=== PATIENT | male | born 1945 | race Caucasian/White ===

== ENCOUNTER 2019-08-29 16:45 | Emergency (ER) | payer MEDICARE ==
[2019-08-29 17:45] LABS: #Basophils 0.1 thou/uL (0.0-0.2); #Eosinphils 0.1 thou/uL (0.0-0.7); #Lymphocytes 1.1 thou/uL (1.20-3.40); #Monocytes 1.1 thou/uL (0.11-0.59); #Neutrophils 12.8 thou/uL (1.40-6.50); %Basophils 0.5 % (0.0-1.0); %Eosinophils 0.7 % (0.0-10.0); %Monocytes 7.5 % (0.0-10.0); %Neutrophils 84.3 % (42.0-75.0); Hemoglobin 14.4 g/dL (14.0-18.0); Mean Corpuscular HGB CONC 31.6 g/dL (32.0-36.0); Mean Corpuscular Hemoglobin 31.8 pg (27.0-31.0); Mean Platelet Volume 7.9 fL (7.4-10.4); Platelet Count 219 thou/uL (130-400); RBC Distribution Width 12.5 % (11.5-14.5); Red Blood Cell (RBC) Count 4.51 mill/uL (4.70-6.10); White Blood Cell (WBC) Count 15.2 thou/uL (4.8-10.8)
[2019-08-29 18:11] LABS: ALT (SGPT) 16 U/L (8-55); AST (SGOT) 21 U/L (5-34); Albumin 3.6 g/dL (3.4-4.8); Alkaline Phosphatase 86 U/L (40-110); Anion Gap 17 mmol/L (10-20); BUN (Urea Nitrogen) 11 mg/dL (8.4-25.7); Bilirubin, Total 0.5 mg/dL (0.2-1.2); Calc. Creatinine Clearance 0 mL/min (70-130); Calcium 8.2 mg/dL (7.8-10.44); Carbon Dioxide 22 mmol/L (23-31); Chloride 104 mmol/L (98-107); Estimated GFR-MDRD 81; Globulin 2.9 g/dL (2.4-3.5); Glucose 105 mg/dL (83-110); Lipase 10 U/L (8-78); Potassium 3.6 mmol/L (3.5-5.1); Protein, Total 6.5 g/dL (5.8-8.1); Sodium 139 mmol/L (136-145)
[2019-08-29] MEDS ORDERED: Sodium Chloride 0.9% 1,000 ML ONE ×2 (18:26→20:26)
[2019-08-29 18:28] LABS: Bilirubin Small (Negative); Blood, Urine Negative (Negative); Clarity Clear (Clear); Glucose, Urine (Dipstick) Negative (Negative); Leukocyte Negative (Negative); Nitrite Negative (Negative); Protein, Urine (Dipstick) 30 mg/dL (Neg-Trace); Urobilinogen 0.2 mg/dL (Less than 2)
[2019-08-29 18:29] LABS: RBC/HPF 0-3 HPF (0-3); Squamous Epithelial 0-3 HPF (0-3); WBC/HPF None Seen HPF (0-3)
[2019-08-29 18:30] LABS: Bacteria/HPF None Seen HPF (None Seen)
--- NOTE | 2019-08-29 19:26 | CT ---
CT ABDOMEN NONCONTRAST CT PELVIS NONCONTRAST: (Urolithiasis protocol) DATE: 08/29/2019 HISTORY: 74-year-old male with generalized abdominal pain and diarrhea COMPARISON: None TECHNIQUE: IV injection of iodinated contrast media: None Oral contrast media: None FINDINGS: Other than for urolithiasis, the lack of IV and oral contrast limits the evaluation. Small amount of fluid around the right lobe of liver. Images are degraded by patient motion. Large number of diverticula throughout the sigmoid colon. Significant thickening of long segment of s igmoid colon surrounded by fat stranding representing edema. Mural thickening of rectum circumferentially. No small bowel dilation. Diffuse mural thickening of urinary bladder, nonspecific. Enlarged prostate gland. Small amount of free fluid along the right paracolic gutter. No calculus identified in the kidneys, ureters, or bladder. No hydronephrosis. Heavy atherosclerotic callus patient of abdominal aorta and iliac arteries without aneurysm. Within the limitations of a noncontrast scan, no gross abnormality identified involving liver, spleen , or pancreas. No pneumoperitoneum. Fold thickening of transverse colon. IMPRESSION: 1. Sigmoid colonic diverticulosis and probable diverticulitis. 2. Apparent colitis involving transverse colon and rectum. 3. Small amount of free fluid at right paracolic gutter and around the liver. 4. No urolithiasis or obstructive uropathy. 5. Diffuse mural thickening of the urinary bladder. This is nonspecific, but one possibility is chron ic bladder outlet obstruction due to enlarged prostate
[2019-08-29] MEDS ORDERED: Sodium Chloride 0.9% 100 ML ONE (19:35)
[2019-08-29] MEDS ORDERED: Cefepime 2 GM VIAL ONE (19:35)
[2019-08-29] MEDS ORDERED: Morphine 2 MG/ML SYRINGE ONE (19:59)
[2019-08-29] MEDS ORDERED: Ondansetron PF 4 MG/2 ML Vial ONE (19:59)
[2019-08-29] MEDS ORDERED: metroNIDAZOLE 500 MG/100 ML BAG ONE (20:08)
== END 2019-08-29 21:35 | disposition short-term general hospital (02) ==
LOC: NAV ERS 16:45
DX: K52.9 Noninfective gastroenteritis and colitis, unspecified (principal); K57.32 Diverticulitis of large intestine without perforation or abscess without bleeding; D72.829 Elevated white blood cell count, unspecified; R11.0 Nausea; E78.5 Hyperlipidemia, unspecified; E78.00 Pure hypercholesterolemia, unspecified; I10 Essential (primary) hypertension; F17.210 Nicotine dependence, cigarettes, uncomplicated; Z79.899 Other long term (current) drug therapy
CPT/HCPCS: 74176; 80053; 81003; 81015; 82274; 83605; 83690; 85025; 87045; 87046; 87324; 87427; 87449; 94760; 96361; 96365; 96367; 96375; J0692; J2270; J2405; J3490; J7050

== ENCOUNTER 2019-09-06 16:32 | Emergency (ER) | payer MEDICARE ==
[2019-09-06] MEDS ORDERED: Sodium Chloride 0.9% 1,000 ML ONE (16:57)
[2019-09-06 17:05] LABS: #Eosinphils 0.2 thou/uL (0.0-0.7); #Lymphocytes 1.7 thou/uL (1.20-3.40); #Monocytes 0.8 thou/uL (0.11-0.59); #Neutrophils 6.3 thou/uL (1.40-6.50); %Basophils 0.5 % (0.0-1.0); %Eosinophils 1.9 % (0.0-10.0); %Lymphocytes 18.9 % (21.0-51.0); %Monocytes 8.7 % (0.0-10.0); %Neutrophils 70.1 % (42.0-75.0); Hemoglobin 13.3 g/dL (14.0-18.0); Mean Corpuscular HGB CONC 32.2 g/dL (32.0-36.0); Mean Corpuscular Hemoglobin 31.9 pg (27.0-31.0); Mean Corpuscular Volume 99.1 fL (78.0-98.0); Platelet Count 285 thou/uL (130-400); RBC Distribution Width 12.5 % (11.5-14.5); Red Blood Cell (RBC) Count 4.16 mill/uL (4.70-6.10)
[2019-09-06 17:19] LABS: ALT (SGPT) 31 U/L (8-55); AST (SGOT) 30 U/L (5-34); Albumin 3.5 g/dL (3.4-4.8); Alkaline Phosphatase 85 U/L (40-110); Anion Gap 15 mmol/L (10-20); BUN (Urea Nitrogen) 9 mg/dL (8.4-25.7); Bilirubin, Total 0.3 mg/dL (0.2-1.2); Calc. Creatinine Clearance 0 mL/min (70-130); Calcium 8.2 mg/dL (7.8-10.44); Carbon Dioxide 27 mmol/L (23-31); Chloride 104 mmol/L (98-107); Estimated GFR-MDRD 79; Globulin 2.5 g/dL (2.4-3.5); Glucose 105 mg/dL (83-110); Lipase 12 U/L (8-78); Potassium 3.1 mmol/L (3.5-5.1); Sodium 143 mmol/L (136-145)
== END 2019-09-06 17:45 | disposition home or self-care (01) ==
LOC: NAV ERS 16:32
DX: K59.00 Constipation, unspecified (principal); I10 Essential (primary) hypertension; E78.00 Pure hypercholesterolemia, unspecified; E78.5 Hyperlipidemia, unspecified; Z79.899 Other long term (current) drug therapy; F17.210 Nicotine dependence, cigarettes, uncomplicated
CPT/HCPCS: 80053; 83690; 85025; 94760; 96360; J7050

== ENCOUNTER 2019-09-25 12:41 | Emergency (ER) | payer MEDICARE ==
[2019-09-25] MEDS ORDERED: Sodium Chloride 0.9% 500 ML ONE (13:24)
[2019-09-25 13:35] LABS: #Eosinphils 0.1 thou/uL (0.0-0.7); #Lymphocytes 1.1 thou/uL (1.20-3.40); #Monocytes 1.1 thou/uL (0.11-0.59); #Neutrophils 10.8 thou/uL (1.40-6.50); %Basophils 0.4 % (0.0-1.0); %Eosinophils 1.1 % (0.0-10.0); %Lymphocytes 8.4 % (21.0-51.0); %Monocytes 8.6 % (0.0-10.0); %Neutrophils 81.6 % (42.0-75.0); Hemoglobin 13.5 g/dL (14.0-18.0); Mean Corpuscular HGB CONC 32.1 g/dL (32.0-36.0); Mean Corpuscular Hemoglobin 31.7 pg (27.0-31.0); Mean Corpuscular Volume 98.8 fL (78.0-98.0); Mean Platelet Volume 8.2 fL (7.4-10.4); Platelet Count 226 thou/uL (130-400); RBC Distribution Width 12.2 % (11.5-14.5); Red Blood Cell (RBC) Count 4.25 mill/uL (4.70-6.10); White Blood Cell (WBC) Count 13.2 thou/uL (4.8-10.8)
[2019-09-25 13:57] LABS: ALT (SGPT) 25 U/L (8-55); AST (SGOT) 20 U/L (5-34); Albumin 3.5 g/dL (3.4-4.8); Alkaline Phosphatase 95 U/L (40-110); Anion Gap 15 mmol/L (10-20); BUN (Urea Nitrogen) 10 mg/dL (8.4-25.7); Bilirubin, Total 0.3 mg/dL (0.2-1.2); Calc. Creatinine Clearance 0 mL/min (70-130); Calcium 8.4 mg/dL (7.8-10.44); Carbon Dioxide 22 mmol/L (23-31); Chloride 104 mmol/L (98-107); Estimated GFR-MDRD 84; Globulin 2.7 g/dL (2.4-3.5); Glucose 116 mg/dL (83-110); Potassium 3.1 mmol/L (3.5-5.1); Protein, Total 6.2 g/dL (5.8-8.1); Sodium 138 mmol/L (136-145)
== END 2019-09-25 17:34 | disposition home or self-care (01) ==
LOC: NAV ERS 12:41
DX: A04.72 Enterocolitis due to Clostridium difficile, not specified as recurrent (principal); I10 Essential (primary) hypertension; E78.5 Hyperlipidemia, unspecified; F17.210 Nicotine dependence, cigarettes, uncomplicated; E78.00 Pure hypercholesterolemia, unspecified; Z79.899 Other long term (current) drug therapy
CPT/HCPCS: 80053; 83605; 85025; 87040; 96360; J7030

== ENCOUNTER 2019-10-21 13:21 | Emergency (ER) | payer MEDICARE, OTHER ==
[2019-10-21 14:48] LABS: #Eosinphils 0.2 thou/uL (0.0-0.7); #Lymphocytes 1.4 thou/uL (1.20-3.40); #Monocytes 1.4 thou/uL (0.11-0.59); #Neutrophils 14.8 thou/uL (1.40-6.50); %Basophils 0.2 % (0.0-1.0); %Eosinophils 0.9 % (0.0-10.0); %Lymphocytes 7.8 % (21.0-51.0); %Monocytes 7.9 % (0.0-10.0); %Neutrophils 83.3 % (42.0-75.0); Hemoglobin 13.2 g/dL (14.0-18.0); Mean Corpuscular HGB CONC 31.3 g/dL (32.0-36.0); Mean Corpuscular Hemoglobin 31.3 pg (27.0-31.0); Mean Platelet Volume 8.9 fL (7.4-10.4); Platelet Count 231 thou/uL (130-400); RBC Distribution Width 12.3 % (11.5-14.5); Red Blood Cell (RBC) Count 4.22 mill/uL (4.70-6.10); White Blood Cell (WBC) Count 17.7 thou/uL (4.8-10.8)
[2019-10-21 15:13] LABS: ALT (SGPT) 18 U/L (8-55); AST (SGOT) 20 U/L (5-34); Albumin 3.7 g/dL (3.4-4.8); Alkaline Phosphatase 81 U/L (40-110); Anion Gap 12 mmol/L (10-20); BUN (Urea Nitrogen) 15 mg/dL (8.4-25.7); Bilirubin, Total 0.4 mg/dL (0.2-1.2); Calc. Creatinine Clearance 0 mL/min (70-130); Calcium 8.7 mg/dL (7.8-10.44); Carbon Dioxide 25 mmol/L (23-31); Chloride 99 mmol/L (98-107); Estimated GFR-MDRD 82; Globulin 2.9 g/dL (2.4-3.5); Glucose 97 mg/dL (83-110); Potassium 3.2 mmol/L (3.5-5.1); Protein, Total 6.6 g/dL (5.8-8.1); Sodium 133 mmol/L (136-145)
[2019-10-21] MEDS ORDERED: Morphine 2 MG/ML SYRINGE ONE (15:24)
[2019-10-21] MEDS ORDERED: Potassium Chloride 20 MEQ/100 ML PREMIX BAG ONE (15:25)
[2019-10-21 15:28] LABS: Amphetamine Not Detected (NotDetected); Barbiturates Screen Not Detected (NotDetected); Benzodiazepine Screen Not Detected (NotDetected); Cocaine Metabolite Screen Not Detected (NotDetected); Medtox Control Line Valid? VALID (VALID); Methadone Not Detected (NotDetected); Methamphetamine Not Detected (NotDetected); Opiate Screen Not Detected (NotDetected); Oxycodone Screen Not Detected (NotDetected); Phencyclidine (PCP) Not Detected (NotDetected); THC/Cannabinoid Screen Not Detected (NotDetected); Tricyclic Screen Not Detected (NotDetected)
[2019-10-21] MEDS ORDERED: Ondansetron PF 4 MG/2 ML Vial ONE (15:29)
--- NOTE | 2019-10-21 16:14 | CT ---
CT Abdomen Pelvis WO Con 10/21/2019 3:19 PM HISTORY: Lower abdominal pain greater on the left as well as in the left pelvis. Recent history of C. difficil e. COMPARISON: 08/29/2019 Technique: Multiple contiguous axial CT images are obtained through the abdomen and pelvis without IV contrast. Coronal reformats are provided. FINDINGS: This examination is limited for the evaluation of solid organs and vascular structures due to the lac k of intravenous contrast. Lower Chest: Stable nodular densities posterior lateral right lung base largest measuring approximate ly 6 mm. Abdomen: Liver: Grossly normal non-enhanced CT appearance. Gallbladder: Within normal limits for CT imaging. Pancreas: Grossly normal nonenhanced CT appearance. Spleen: Grossly normal nonenhanced CT appearance. Adrenals: Mild thickening left adrenal gland without nodule. This is a stable finding. Right adrenal gland demonstrates a grossly normal nonenhanced CT appearance. Kidneys: Subcentimeter too small to characterize exophytic hypodense lesion superior pole right kidne y. No renal or ureteral calculi are seen bilaterally, and there is no hydronephrosis. Ureters: No ureteral calculus is seen.. Pelvis: Urinary bladder: Decompressed. Also the urinary bladder do appear mildly thickened, this is a stable finding. Reproductive Organs: Prostate gland is again mildly enlarged in transverse dimensions measuring 5.1 c m. Lymph Nodes: No enlarged lymph nodes. Bowel: Suggested mild wall thickening and involving the colon diffusely with much greater wall thicke vilma involving the sigmoid colon. Multiple colonic diverticula are seen involving the sigmoid colon. There is pericolonic inflammatory stranding seen adjacent to the sigmoid colon. This finding w as noted on the prior exam. There is a fluid and gas collection in the left hemipelvis superior lateral to the sigmoid colon measuring 3.6 cm x 2.4 cm most compatible with small abscess collection. Loops of small bowel are normal in caliber. Peritoneum: No free fluid or free intraperitoneal air. Retroperitoneum: within normal limits. Vessels: Dense atherosclerotic vascular calcifications are again seen in the abdominal aorta and elizabeth c arteries.. Abdominal Wall: within normal limits. Bones: Degenerative changes are again seen in the spine. IMPRESSION: 1. Findings suggestive of colitis with overall diffuse mild wall thickening of the colon, but there i s greater degree of wall thickening involving the sigmoid colon. Multiple diverticula are seen in the region of the sigmoid colon, and diverticulitis is a possibility. 2. Abscess left hemipelvis adjacent to the sigmoid colon measuring 3.6 cm x 2.4 cm. 3. Trace amount of fluid right paracolic gutter. 4. Suggested mild wall thickening involving the urinary bladder similar to prior exam. This may be re lated to incomplete distention or possibly due to chronic bladder outlet obstruction due to enlarged prostate gland. Cystitis is a differential consideration as well. 5. No renal or ureteral calculi seen bilaterally. 7. Nonspecific nodular densities right lung base. Follow-up evaluation in 6 months is recommended.
[2019-10-21 16:23] LABS: Bilirubin Negative (Negative); Blood, Urine Negative (Negative); Clarity Clear (Clear); Glucose, Urine (Dipstick) Negative (Negative); Leukocyte Negative (Negative); Nitrite Negative (Negative); Protein, Urine (Dipstick) Negative (Neg-Trace); Urobilinogen 0.2 mg/dL (Less than 2)
[2019-10-21] MEDS ORDERED: metroNIDAZOLE 500 MG/100 ML BAG ONE (16:30)
[2019-10-23 09:57] LABS: SARS-CoV-2 MS2 Positive; SARS-CoV-2 N Gene Negative; SARS-CoV-2 S Gene Negative; SARS-CoV-2 orf1ab Negative
== END 2019-10-21 18:20 | disposition short-term general hospital (02) ==
LOC: NAV ERS 13:21
DX: K57.20 Diverticulitis of large intestine with perforation and abscess without bleeding (principal); E78.00 Pure hypercholesterolemia, unspecified; E78.5 Hyperlipidemia, unspecified; I10 Essential (primary) hypertension; F17.210 Nicotine dependence, cigarettes, uncomplicated; Z79.899 Other long term (current) drug therapy; Z20.828 Contact with and (suspected) exposure to other viral communicable diseases
CPT/HCPCS: 74176; 80053; 80306; 81003; 83605; 85025; 87040; 96361; 96365; 96375; 99285; G0103; U0003; 87635; J2270; J2405; J3480